=== PATIENT | male | born 1990 | race Caucasian/White ===

== ENCOUNTER 2021-07-17 17:31 | Emergency (ER) | payer MEDICAID, SELFPAY ==
--- NOTE | ~2021-07-17 | XR_ITS ---
Indication: Atraumatic left hip pain EXAMINATION: Pelvis, left hip, left shoulder. Single view of the pelvis does not demonstrate evidence for fracture. 2 detailed views of the left hip do not show fracture or dislocation. The femoral head contour is smooth. The joint spaces well-preserved 4 views of the left shoulder do not demonstrate acute fracture or dislocation. No significant degenerative change. XR/XR hip LT w [id number] IMPRESSION: No suspicious bony finding pelvis, left hip, left shoulder.
--- NOTE | ~2021-07-17 | XR_ITS ---
Indication: Atraumatic left hip pain EXAMINATION: Pelvis, left hip, left shoulder. Single view of the pelvis does not demonstrate evidence for fracture. 2 detailed views of the left hip do not show fracture or dislocation. The femoral head contour is smooth. The joint spaces well-preserved 4 views of the left shoulder do not demonstrate acute fracture or dislocation. No significant degenerative change. XR/XR shoulder LT min 2V IMPRESSION: No suspicious bony finding pelvis, left hip, left shoulder.
[2021-07-17 18:24] VITALS: BP 118/71; PULSE 87; RESP 16; TEMP 36.8; O2SAT 97; BMI 30.2
[2021-07-17] MEDS: Cyclobenzaprine HCl 10 MG TABLET PO (19:42)
[2021-07-17] MEDS: NaPROXEN 500 MG TABLET PO (19:43)
[2021-07-17 20:01] LABS: Appearance Urine CLEAR; Color Urine YELLOW; Glucose Urine UA NEG (NEG); Leukocyte Esterase Urine NEG (NEG); Nitrite Urine NEG (NEG); PH 6.5 (5.0-8.0); Urine Blood NEG (NEG); Urine Ketones NEG (NEG); Urine Protein NEG (NEG-TRACE)
--- NOTE | 2021-07-17 20:59 | ED_ITS ---
HPI - General Adult General Chief complaint: General Medical Stated complaint: shoulder and back pain Time Seen by Provider: 07/17/21 19:12 Related Data Allergies Allergy/AdvReac Type Severity Reaction Status Date / Time No Known Allergies Allergy Verified 07/17/21 19:28 [facility] Social History Social History Advance Directives: No Advance Directives Information Provided: No Physical Exam Vital Signs: Vital Signs: Last Vital Signs Temp 98.3 F 07/17/21 18:24 Pulse 87 07/17/21 18:24 Resp 16 07/17/21 18:24 BP 118/71 07/17/21 18:24 Pulse Ox 97 07/17/21 18:24 Body Mass Index 30.2 Medical Decision Making Lab Data Labs: Lab Results 07/17/21 Range/Units 19:40 Urine Color YELLOW Urine Appearance CLEAR Urine pH 6.5 (5.0-8.0) Ur Specific [place] 1.010 (1.005-1.025) Urine Protein NEG (NEG-TRACE) MG/DL Urine Glucose (UA) NEG (NEG) MG/DL Urine Ketones NEG (NEG) MG/DL Urine Blood NEG (NEG) Urine Nitrite NEG (NEG) Ur Leukocyte Esterase NEG (NEG)
--- NOTE | 2021-07-17 21:05 | ED_ITS ---
HPI - Extremity Problem General Chief complaint: General Medical Stated complaint: shoulder and back pain Time Seen by Provider: 07/17/21 19:12 Source: patient Mode of arrival: ambulatory Limitations: no limitations History of Present Illness HPI Narrative: 31-year-old male presenting to the ED with complaints of atraumatic left shoulder and left hip pain that started today while he was at work. He reports that he was starting to get ready for work he works lifting alcohol bottles and wine bottles although he reports that he did not lift anything. He denies any other injuries complaints or concerns at this time Related Data Previous Rx's Medication Instructions Recorded acetaminophen 500 mg tablet 1,000 mg PO QID PRN #14 tab 07/17/21 (Tylenol Extra Strength) cyclobenzaprine 10 mg tablet 10 mg PO Q8H #10 tab 07/17/21 lidocaine HCl 4 % topical cream 1 appl TOPICAL BID PRN #120 g 07/17/21 (Aspercreme (lidocaine HCl)) naproxen 500 mg tablet 500 mg PO BID PRN #10 tab 07/17/21 Allergies Allergy/AdvReac Type Severity Reaction Status Date / Time No Known Allergies Allergy Verified 07/17/21 19:28 Review of Systems Review of Systems: Constitutional : No Weight loss, No Fever, No Chills, No Night Sweats, No Fatigue, No Malaise ENT/Mouth : No Hearing loss, No Ear Pain, No Nasal Congestion, No Sinus Pain, No Hoarseness, No sore throat, No Rhinorrhea, No Swallowing Difficulty Eyes: No Eye Pain, No Swelling, No Redness, No Foreign Body, No Discharge, No Vision Changes Cardiovascular : No Chest Pain, No SOB, No Dyspnea on Exertion, No Orthopnea, No Edema, No Palpitations Respiratory : No Cough, No Sputum, No Wheezing, No Smoke Exposure, No Dyspnea Gastrointestinal : No Nausea, No Vomiting, No Diarrhea, No Constipation, No abdominal Pain, No Hematochezia, No Melena Genitourinary : no irregular bleeding, No Dysuria, No Urinary Frequency, No Hematuria, No Urinary Incontinence, No Urgency, No Flank Pain, No Urinary Flow Changes, No Hesitancy Musculoskeletal : Positive left shoulder and left hip joint pain, No Myalgias, No Joint Swelling Skin : No Skin Lesions, No rash Neuro : No Weakness, No Numbness, No Paresthesias, No Loss of Consciousness, No Dizziness, No Headache Psych : No Anxiety/Panic, No Depression, No SI/HI/AH/VH, No Social Issues, Heme/Lymph: No Bruising, No Bleeding,No Lymphadenopathy Endocrine : No Polyuria, No Polydipsia, No Temperature Intolerance Yes all other systems are reviewed and are negative [facility] Past Medical History Attestation statement: The following information was validated with the patient. Social History Social History Advance Directives: No Advance Directives Information Provided: No Physical Exam Vital Signs: Vital Signs: Last Vital Signs Temp 98.3 F 07/17/21 18:24 Pulse 87 07/17/21 18:24 Resp 16 07/17/21 18:24 BP 118/71 07/17/21 18:24 Pulse Ox 97 07/17/21 18:24 Body Mass Index 30.2 vital signs have been reviewed as normal and appeared to be correct. Blood pressure normal. Heart rate normal. Respiration rate normal. Temperature normal. Oxygen saturation normal. Appearance: Alert. Oriented X3. No acute distress. Head: Normal external exam. Normocephalic. Atraumatic. Eyes: PERRLA. EOMI. Conjunctiva and sclera normal. Eyelids normal. ENT: Pharynx normal. Uvula midline. Moist mucous membranes. Neck: Normal inspection. Neck supple. FROM. No adenopathy. No meningeal signs. No neck mass noted. CVS: Normal heart rate and rhythm. Heart sound normal. Pulses normal throughout. No murmurs/rales/gallops. Respiratory: No respiratory distress. Painless inspiration. Breath sounds normal. No wheezes/rales/rhonchi noted. Chest nontender. No accessory muscle usage noted or decreased air movement noted. Abdomen: Soft and nontender. Bowel sounds normal in all 4 quadrants. No distention noted. No organomegaly noted. No visible injury noted. Back: No CVA tenderness. Full range of motion noted. No rashes/lesion/induration/fluctuance or signs of infection noted. Skin: Skin warm and dry. Normal skin color. Normal skin turgor. No rashes/lesions/lacerations noted. Extremities: Patient with tenderness palpation to left AC joint although patient has limited range of motion due to pain no obvious deformities or ligamentous or tendon injuries. No edema to upper or lower extremities. Patient with mild sense of patient to left medial hip/groin/upper thigh. No rashes or obvious deformities. Patient has full range of motion of the left hip and lower extremity joints. No ligamentous or tendon injury is noted. No lower extremity edema. No calf tenderness is noted. Otherwise all other extremities exhibit normal range of motion and nontender. Neuro: Oriented X 3. No motor deficit. No sensory deficit. Reflexes normal. Normal steady gait. No focal neuro deficits noted. Vascular: + radial pulses/+ 2 distal pedal pulses/+2 dorsalis pedis b/l. Normal cap refill. No cyanosis noted to upper extremity nails and lower extremity toes nails. Course Course Course Narrative: 31-year-old male presenting to the ED with atraumatic left shoulder and left hip pain that started today while at work although before starting work. On exam patient has limited range of motion to the left shoulder. Otherwise no obvious deformities and no obvious ligamentous or tendon injury is noted. Patient with tenderness of patient to left hip. Abdomen is soft and nontender. Patient has full range of motion of the left hip. No rashes. No lower extremity edema or upper extremity edema. No calf tenderness is noted. X-rays obtained and negative for any acute processes. Patient most likely muscular strain will DC home with symptomatic treatment in a sling along with instructions return if any new or worsening symptoms to follow up with primary care provider. Patient understands agrees this plan MDM - Extremity (Nontraumatic) Medical Records Attestation: I reviewed the patient's medical records. Lab Data Labs: Lab Results 07/17/21 Range/Units 19:40 Urine Color YELLOW Urine Appearance CLEAR Urine pH 6.5 (5.0-8.0) Ur Specific [place] 1.010 (1.005-1.025) Urine Protein NEG (NEG-TRACE) MG/DL Urine Glucose (UA) NEG (NEG) MG/DL Urine Ketones NEG (NEG) MG/DL Urine Blood NEG (NEG) Urine Nitrite NEG (NEG) Ur Leukocyte Esterase NEG (NEG) Imaging Data Left shoulder/hip x-ray: Attestation: I personally reviewed and interpreted this imaging study as follows: Radiologist's impression: MR#: [id number] Attending Dr: Ordering Physician: Hortencia Castaneda Date of Service: 07/17/21 Procedure(s): XR shoulder LT min 2V Accession Number(s): [id number] cc: Hortencia Castaneda~ Indication: Atraumatic left hip pain EXAMINATION: Pelvis, left hip, left shoulder. Single view of the pelvis does not demonstrate evidence for fracture. 2 detailed views of the left hip do not show fracture or dislocation. The femoral head contour is smooth. The joint spaces well-preserved 4 views of the left shoulder do not demonstrate acute fracture or dislocation.? No significant degenerative change. XR/XR shoulder LT min 2V IMPRESSION: No suspicious bony finding pelvis, left hip, left shoulder. Procedures Orthopedic Splinting/Casting Injury #1: Side: left Upper Extremity Injury Location: shoulder Upper Extremity Immobilizer: sling/shoulder immobilizer Discharge Plan Discharge Clinical Impression: Left shoulder strain, Strain of left hip Patient Disposition: Home, Self-Care Instructions: Muscle Strain (ED), Shoulder Immobilizer (ED) Prescriptions: New cyclobenzaprine 10 mg tablet 10 mg PO Q8H Qty: 10 RF: 0 acetaminophen [Tylenol Extra Strength] 500 mg tablet 1,000 mg PO QID PRN (Reason: fever or pain) Qty: 14 RF: 0 naproxen 500 mg tablet 500 mg PO BID PRN (Reason: pain) Qty: 10 RF: 0 lidocaine HCl [Aspercreme (lidocaine HCl)] 4 % cream 1 appl topical BID PRN (Reason: pain) Qty: 120 RF: 0 Referrals: Physician,Nonstaff [Primary Care Provider] - 2 days (your pcp) Stand Alone Forms: Work/School Release Print Language: Green[place]ic
[2021-07-18 01:35] LABS: CT PCR NOT DETECTED (Not Detect.); NG PCR NOT DETECTED (Not Detect.)
== END 2021-07-17 21:24 | disposition home or self-care (01) ==
PROVIDERS: Physician Assistant Medical; Emergency Provider Internal Medicine
DX: S46.912A Strain of unspecified muscle, fascia and tendon at shoulder and upper arm level, left arm, initial encounter (principal); S76.012A Strain of muscle, fascia and tendon of left hip, initial encounter; M25.512 Pain in left shoulder; M25.552 Pain in left hip; X58.XXXA Exposure to other specified factors, initial encounter; Y93.9 Activity, unspecified; Y92.9 Unspecified place or not applicable; Y99.9 Unspecified external cause status; Z79.899 Other long term (current) drug therapy
CPT/HCPCS: 29105; 73030; 73502; 81003; 87491; 87591; 99283; 99284